=== PATIENT | female | born 1940 | race Caucasian/White ===

== ENCOUNTER 2020-11-09 18:30 | Inpatient (IN) | payer OTHER ==
[~2020-11-09] VITALS: Ht 162.6 cm; Wt 72.1 kg
[2020-11-09] MEDS ORDERED: ZOLOFT25 MG PO (18:38)
[2020-11-10] MEDS ORDERED: ANASTROZOLE1 MG (10:25)
[2020-11-10] MEDS ORDERED: SERTRALINE HCL50 MG (10:25)
[2020-11-10] MEDS ORDERED: ATORVASTATIN CA10 MG (10:25)
[2020-11-10] MEDS ORDERED: ALPRAZOLAM0.25 MG (10:25)
== END 2020-11-13 14:45 | disposition home or self-care (01) | DRG 482 ==
LOC: ER 18:30 → SURG 20:56
PROVIDERS: Orthopaedic Surgery; ADMIT Internal Medicine; ATTEND Internal Medicine
PROC: 0QS604Z Reposition Right Upper Femur with Internal Fixation Device, Open Approach (ICD-10-PCS; principal; 2020-11-10 07:00)
DX: S72.091A Other fracture of head and neck of right femur, initial encounter for closed fracture (principal); W10.8XXA Fall (on) (from) other stairs and steps, initial encounter; Y92.019 Unspecified place in single-family (private) house as the place of occurrence of the external cause; G47.00 Insomnia, unspecified; F32.9 Major depressive disorder, single episode, unspecified; Z20.822 Contact with and (suspected) exposure to COVID-19